=== PATIENT | female | born 1990 | race Caucasian/White ===

== ENCOUNTER 2018-04-24 02:39 | Emergency (ER) | payer OTHER ==
[~2018-04-24] VITALS: Ht 157.5 cm; Wt 68.0 kg
[2018-04-24 02:45] VITALS: BP_SYST 124
[2018-04-24 03:19] VITALS: BP_SYST 122
== END 2018-04-24 03:19 | disposition home or self-care (01) ==
LOC: SED 02:39
DX: Z02.83 Encounter for blood-alcohol and blood-drug test (principal)